=== PATIENT | female | born 1990 | race Two or more races ===

== ENCOUNTER 2018-12-12 15:43 | Outpatient (CLI) | payer OTHER ==
[~2018-12-12] VITALS: Ht 160 cm; Wt 87.3 kg
[2018-12-12 16:00] VITALS: BP 143/70
[2018-12-12 16:12] LABS: MICROSCOPIC INDICATED
[2018-12-12 16:18] LABS: ALBUMIN 2.8 g/dL (3.4-5.0); ANION GAP 10 mmol/L (5-15); BASOPHILS # (AUTO) 0.02 x10^3/uL (0-0.1); BASOPHILS % (AUTO) 0 % (0-1); CALCIUM 8.7 mg/dL (8.5-10.1); CHLORIDE 110 mmol/L (98-107); CREATININE 0.64 mg/dL (0.55-1.02); EOSINOPHILS # (AUTO) 0.11 x10^3/uL (0-0.4); EOSINOPHILS % (AUTO) 1 % (1-7); LYMPHOCYTES # (AUTO) 2.81 x10^3/uL (1-3.4); LYMPHOCYTES % (AUTO) 28 % (22-44); MD NO; MEAN CORPUSCULAR HEMOGLOBIN 31.6 pg (27.0-34.8); MEAN CORPUSCULAR HGB CONC 33.1 g/dL (32.4-35.8); MEAN CORPUSCULAR VOLUME 95.4 fL (80-100); MEAN PLATELET VOLUME 12.2 fL (7.4-10.4); MONOCYTES # (AUTO) 0.69 x10^3/uL (0.2-0.8); MONOCYTES % (AUTO) 7 % (2-9); NEUTROPHILS # (AUTO) 6.58 x10^3/uL (1.8-6.8); NEUTROPHILS % (AUTO) 65 % (42-75); PLATELET COUNT 189 x10^3/uL (130-400); RED BLOOD COUNT 4.32 x10^6/uL (3.82-5.3)
[2018-12-12 16:24] LABS: CREATININE,URINE RANDOM 17.6 mg/dL
[2018-12-12 16:28] LABS: ALANINE AMINOTRANSFERASE 32 U/L (12-78); ALKALINE PHOSPHATASE 281 U/L (45-117); BILIRUBIN,TOTAL 0.3 mg/dL (0.2-1.0); TOTAL PROTEIN 6.4 g/dL (6.4-8.2)
== END 2018-12-12 16:54 | disposition home or self-care (01) ==
LOC: LDOP 15:43
PROVIDERS: ATTEND Obstetrics & Gynecology
DX: O16.3 Unspecified maternal hypertension, third trimester (principal); Z3A.37 37 weeks gestation of pregnancy
CPT/HCPCS: 36415; 59025; 80053; 81001; 82570; 84156; 84550; 85025; 87086; 99211; G0463

== ENCOUNTER 2018-12-20 16:45 | Outpatient (CLI) | payer OTHER ==
[~2018-12-20] VITALS: Ht 157.5 cm; Wt 88.2 kg
[2018-12-20 17:02] VITALS: BP 132/73
[2018-12-20] MEDS ORDERED: PREN1TAB60 PO (17:39)
[2018-12-20 17:41] LABS: MICROSCOPIC AUTO
[2018-12-20 17:42] LABS: ALBUMIN 2.6 g/dL (3.4-5.0); ANION GAP 10 mmol/L (5-15); CALCIUM 8.9 mg/dL (8.5-10.1); CHLORIDE 111 mmol/L (98-107)
[2018-12-20 17:45] LABS: ALANINE AMINOTRANSFERASE 27 U/L (12-78); ALKALINE PHOSPHATASE 285 U/L (45-117); BILIRUBIN,TOTAL 0.3 mg/dL (0.2-1.0); CREATININE 0.55 mg/dL (0.55-1.02); TOTAL PROTEIN 5.9 g/dL (6.4-8.2)
[2018-12-20 17:50] LABS: BILIRUBIN, DIRECT < 0.1 mg/dL (0.1-0.2)
[2018-12-20 17:59] LABS: CREATININE,URINE RANDOM < 13.00 mg/dL; PROTEIN/CREATININE RATIO,URINE < 385 (0-200); TOTAL PROTEIN,URINE RANDOM < 5 mg/dL (0-12)
[2018-12-20 18:26] LABS: MEAN CORPUSCULAR HEMOGLOBIN 32.3 pg (27.0-34.8); MEAN CORPUSCULAR HGB CONC 33.3 g/dL (32.4-35.8); MEAN CORPUSCULAR VOLUME 96.9 fL (80-100); RED BLOOD COUNT 3.81 x10^6/uL (3.82-5.3); RED CELL DISTRIBUTION WIDTH 13.5 % (9.6-15.2)
[2018-12-20 18:27] LABS: MEAN PLATELET VOLUME 12.3 fL (7.4-10.4); PLATELET COUNT 140 x10^3/uL (130-400)
[2018-12-20 18:30] LABS: MD SCAN
[2018-12-20 18:31] LABS: BASOPHILS # (AUTO) 0.02 x10^3/uL (0-0.1); BASOPHILS % (AUTO) 0 % (0-1); EOSINOPHILS # (AUTO) 0.08 x10^3/uL (0-0.4); EOSINOPHILS % (AUTO) 1 % (1-7); LYMPHOCYTES # (AUTO) 2.09 x10^3/uL (1-3.4); LYMPHOCYTES % (AUTO) 25 % (22-44); MONOCYTES % (AUTO) 6 % (2-9); NEUTROPHILS # (AUTO) 5.81 x10^3/uL (1.8-6.8); NEUTROPHILS % (AUTO) 68 % (42-75)
== END 2018-12-20 18:40 | disposition home or self-care (01) ==
LOC: LDOP 16:45
PROVIDERS: ATTEND Obstetrics & Gynecology
DX: O16.3 Unspecified maternal hypertension, third trimester (principal); Z3A.39 39 weeks gestation of pregnancy
CPT/HCPCS: 36415; 59025; 80053; 81001; 82248; 82570; 84156; 84550; 85025; 99211; G0463